=== PATIENT | female | born 1980 | race Caucasian/White ===

== ENCOUNTER 2019-01-10 13:56 | Outpatient (CLI) | payer MEDICAID ==
[2019-01-10 17:25] LABS: ADD UMIC YES; UR ASCORBIC ACID NEGATIVE (NEGATIVE); UR BACTERIA FEW /HPF (NONE SEEN); UR BILIRUBIN (Dip) NEGATIVE (NEGATIVE); UR BLOOD (Dip) 1+ mg/dL (NEGATIVE); UR CLARITY CLEAR (CLEAR); UR COLOR STRAW (YELLOW); UR GLUCOSE (Dip) NEGATIVE (NEGATIVE); UR KETONES (Dip) NEGATIVE (NEGATIVE); UR LEUKOCYTE ESTERASE (Dip) NEGATIVE Leu/ul (NEGATIVE); UR NITRITE (Dip) NEGATIVE (NEGATIVE); UR RBC 0 /HPF (0-5); UR SPECIFIC GRAVITY (Dip) 1.004 (1.003-1.030); UR SQUAMOUS EPITHELIAL CELL FEW /HPF (FEW); UR TOTAL PROTEIN (Dip) NEGATIVE (NEGATIVE); UR UROBILINOGEN (Dip) NEGATIVE (NEGATIVE); UR WBC 0 /HPF (0-5)
== END 2019-01-10 17:01 | disposition home or self-care (01) ==
LOC: OBT 13:56 → L-D 13:56 → OBT 17:01
DX: O36.8130 Decreased fetal movements, third trimester, not applicable or unspecified (principal); O09.523 Supervision of elderly multigravida, third trimester; Z3A.37 37 weeks gestation of pregnancy
CPT/HCPCS: 76818; 81001

== ENCOUNTER 2019-01-24 16:08 | Inpatient (IN) | payer MEDICAID ==
[2019-01-24] MEDS ORDERED: OXYTOCIN 30 UNITS/LR 500 ML IV (18:00)
[2019-01-24] MEDS ORDERED: CARBOPROST 250 MCG INJ IM (18:00)
[2019-01-24] MEDS ORDERED: MISOPROSTOL 200 MCG TAB PR (18:00)
[2019-01-24] MEDS: LACTATED RINGER'S 1,000 ML IV (19:04)
[2019-01-24] MEDS: MISOPROSTOL 50 MCG CAPSULE PO ×2 (19:40→23:58)
[2019-01-25] MEDS: LACTATED RINGER'S 1,000 ML IV ×3 (01:06→08:51)
[2019-01-25] MEDS: MISOPROSTOL 50 MCG CAPSULE PO ×3 (04:10→16:26)
[2019-01-25] MEDS ORDERED: FENTAnyl 2MCG/ML-ROPIV 0.2% 100 ML (08:21)
[2019-01-25] MEDS ORDERED: DIPHENHYDRAMINE 50 MG INJ IV (08:30)
[2019-01-25] MEDS ORDERED: NALOXONE (0.4 MG/ML) INJ IV (08:30)
[2019-01-25] MEDS ORDERED: ONDANSETRON 4 MG INJ IV (08:30)
[2019-01-25] MEDS: LEVOTHYROXINE 100 MCG TAB PO (08:51)
[2019-01-25] MEDS: LIDOCAINE 1% (MPF) 30 ML INJ INJ (12:52)
[2019-01-25] MEDS: FENTAnyl 2MCG/ML-ROPIV 0.2% 100 ML BAG EPI (12:52)
[2019-01-25] MEDS: MINERAL OIL LIGHT 10 ML VIAL TOP (12:54)
[2019-01-25] MEDS: METHYLERGONOVINE 0.2 MG INJ IM (13:12)
[2019-01-25] MEDS: OXYTOCIN 30 UNITS/LR 500 ML IV ×2 (13:21→13:22)
[2019-01-25] MEDS: LACTATED RINGER'S 1,000 ML IV* ×2 (16:22→17:11)
[2019-01-25] MEDS ORDERED: HYDROCODONE/APAP (5/325) TAB PO (16:30)
[2019-01-25] MEDS ORDERED: DIBUCAINE 1% 30 GM OINT TOP (16:30)
[2019-01-25] MEDS ORDERED: METHYLERGONOVINE 0.2 MG INJ IM (16:30)
[2019-01-25] MEDS ORDERED: MISOPROSTOL 200 MCG TAB PR (16:30)
[2019-01-25] MEDS ORDERED: OXYTOCIN 30 UNITS/LR 500 ML IV (16:30)
[2019-01-25] MEDS ORDERED: CARBOPROST 250 MCG INJ IM (16:30)
[2019-01-25] MEDS: BENZOCAINE 20% 56 ML SPRAY TOP (17:11)
[2019-01-25] MEDS: WITCH HAZEL/GLYCERIN PAD PR (17:11)
[2019-01-25] MEDS: ACETAMINOPHEN 325 MG TAB PO (17:15)
[2019-01-25] MEDS: IBUPROFEN 600 MG TAB PO (18:00)
[2019-01-25] MEDS: SENNA/DOCUSATE NA (8.6MG/50MG) TAB PO (21:00)
[2019-01-26] MEDS: ACETAMINOPHEN 325 MG TAB PO ×2 (04:50→19:51)
[2019-01-26] MEDS: IBUPROFEN 600 MG TAB PO ×4 (06:00→18:00)
[2019-01-26] MEDS: LEVOTHYROXINE 100 MCG TAB PO (06:39)
[2019-01-26] MEDS: SENNA/DOCUSATE NA (8.6MG/50MG) TAB PO ×2 (09:53→21:00)
[2019-01-27] MEDS: ACETAMINOPHEN 325 MG TAB PO ×2 (03:53→11:13)
[2019-01-27] MEDS: IBUPROFEN 600 MG TAB PO ×3 (06:00→12:00)
[2019-01-27] MEDS: LEVOTHYROXINE 100 MCG TAB PO (06:23)
[2019-01-27] MEDS: DIPHTH/TET/ACEL PERTUSS (ADULT) 0.5 ML VIAL IM* (09:00)
[2019-01-27] MEDS: SENNA/DOCUSATE NA (8.6MG/50MG) TAB PO (09:26)
== END 2019-01-27 16:51 | disposition home or self-care (01) | DRG 807 ==
LOC: OBT 16:08 → L-D 16:08 → PP1 01-25 15:51 → OBT 17:41 → L-D 17:41
PROC: 0HQ9XZZ Repair Perineum Skin, External Approach (ICD-10-PCS; principal; 2019-01-25)
PROC: 10E0XZZ Delivery of Products of Conception, External Approach (ICD-10-PCS; 2019-01-25)
DX: O70.0 First degree perineal laceration during delivery (principal); Z37.0 Single live birth; Z3A.40 40 weeks gestation of pregnancy
CPT/HCPCS: 62322; 76815; 76818; 85025; 85610; 85730; 86592; 86850; 86900; 86901; 93970; 99464